=== PATIENT | male | born 1990 | race African-American/Black ===

== ENCOUNTER 2021-11-16 14:24 | Emergency (ER) | payer OTHER ==
[2021-11-16 14:37] VITALS: BP 123/77; PULSE 94; TEMP 97.9; BMI 35.4
[2021-11-16 18:06] LABS: BASO % 0.9 % (0-2.0); EOS % 0.5 % (0-4.5); HEMOGLOBIN 14.1 GM/dL (11.7-16.9); LYMPH % 24.2 % (8-40); MCH 26.8 pg (25.7-33.7); MCHC 32.8 g/dl (32.0-35.9); MEAN CELL VOLUME 81.9 fl (80-96); MEAN PLT VOLUME 10.9 fl (7.5-11.1); NEUT % 57.4 % (42.8-82.8); PLATELET COUNT 202 10^3/uL (134-434); RBC 5.25 M/mm3 (4.00-5.60); RDW 14.6 % (11.9-15.9); WHITE BLOOD COUNT 7.2 K/mm3 (4.0-10.0)
[2021-11-16 18:31] LABS: ALBUMIN 4.4 g/dl (3.4-5.0); BLOOD UREA NITROGEN 8.2 mg/dL (7-18)
[2021-11-16 18:36] LABS: BILIRUBIN,TOTAL 0.5 mg/dL (0.2-1); TOT PROT 8.2 g/dl (6.4-8.2)
[2021-11-18 01:22] LABS: HIV INTERPRETATION NEGATIVE (NEGATIVE)
== END 2021-11-16 18:12 | disposition home or self-care (01) ==
LOC: JERFT 14:24
DX: R21 Rash and other nonspecific skin eruption (principal)
CPT/HCPCS: 36415; 80053; 85025; 86780; 87389; 87491; 87591; 99283-25